=== PATIENT | male | born 1970 | race Caucasian/White ===

== ENCOUNTER 2021-08-15 00:11 | Emergency (ER) | payer SELFPAY ==
[~2021-08-15] VITALS: Ht 182.9 cm; Wt 100.0 kg
[2021-08-15] MEDS ORDERED: ASPIRIN 81MG TABLET PO ONE (00:45)
[2021-08-15] MEDS ORDERED: NITROGLYCERIN 0.4MG TABLET SL SL PRN (00:45)
[2021-08-15 01:16] VITALS: BP 145/109
[2021-08-15] MEDS ORDERED: ASPIRIN 81MG TABLET PO SCH (01:30)
== END 2021-08-15 01:32 ==
LOC: ER 00:11
DX: R07.89 Other chest pain (principal); F10.10 Alcohol abuse, uncomplicated; Y90.0 Blood alcohol level of less than 20 mg/100 ml
CPT/HCPCS: 71045; 93005; 99283